=== PATIENT | male | born 1945 | race Caucasian/White ===

== ENCOUNTER 2024-12-04 08:51 | Outpatient (AMB) | payer MEDICARE, SELFPAY ==
--- NOTE | 2024-12-04 08:53 | A.OFFPC_ITS ---
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 He reports he spends about 12 w in [place] per year and last medical evaluation was abotu 2 months there and presents with his labs. Type 2 diabetes-last hemoglobin A1c was 7.5%. He does wear a continuous glucose monitor. Fasting glucose this morning was 160. He does report that occasionally he wakes up in the middle of the night hypoglycemic at 70. He is asymptomatic when these episodes occur. He is insulin-dependent using 20 units of Basaglar in the morning and 14 at night. He also uses NovoLog on sliding scale. He states that he will have snacks at night due to concerns for hypoglycemia. He does follow with [facility]. Type 2 diabetes complicated by diabetic retinopathy, macular degeneration, and glaucoma. He follows with ophthalmologic care in [place] and receives injections every 8 weeks and uses timolol twice daily. CAD[place]HLD- [place] [facility] [place] Continue swallowing there. No recent anginal chest pain. Continues on aspirin, atenolol, atorvastatin Hypertension-controlled with atenolol Elevated PSA-recent labs revealed PSA of 12. No LUTS reported by patient. Has had MRI with upcoming biopsy scheduled early next month. At [facility] 12 w per years staggered. home 2 children and grandchildren. Concerns: None Health maintenance: Last colonoscopy 09/26/2024 at [facility] in [place], report to be requested ROS: General: No fevers, malaise, unintentional weight loss HEENT: No blurred vision, diplopia. No sore throat, nasal congestion, rhinorrhea, sinus pain, ear pain Cardiovascular: No chest pain, palpitations, or leg edema Respiratory: No shortness of breath, wheezing, cough GI: No abdominal pain, nausea, vomiting, diarrhea, constipation, melena, hematochezia : No dysuria, hematuria, increased urinary frequency, decreased urinary output MSK: No myalgia, back pain Neuro: No headaches, weakness, paresthesias Skin: No rashes or lesions EXAM: Constitutional - Awake and Alert, No apparent distress Eyes - PERRL Cardiovascular - S1S2, RRR, No edema Respiratory - Normal lung expansion, Normal respiratory effort, No respiratory distress, CTA bilaterally Extremities - no calf tenderness bilaterally, no swelling Skin - Warm/Dry Neurological - Alert & oriented x3 Psychological - Appropriate affect PFSH Medical History (Updated 12/04/24 @ 09:37 by ANA MARIA Malcolm) Elevated PSA Diabetic retinopathy CAD (coronary artery disease) HTN (hypertension) HLD (hyperlipidemia) Type 2 diabetes mellitus Surgical History (Updated 12/04/24 @ 09:27 by ANA MARIA Malcolm) S/P cataract extraction S/P CABG x 6 Family History (Updated 12/04/24 @ 09:28 by ANA MARIA Malcolm) Mother Stroke CAD (coronary artery disease) Social History Patient Tobacco Use Status: Never used Tobacco e-Cigarette/Vaping Use: Never Used Questionnaire PHQ-9 Over the last 2 weeks, how often have you been bothered by any of the following problems? 1. Little interest or pleasure in doing things: not at all 2. Feeling down, depressed, or hopeless: not at all 3. Trouble falling or staying asleep, or sleeping too much: not at all 4. Feeling tired or having little energy: not at all 5. Poor appetite or overeating: not at all 6. Feeling bad about yourself - or that you are a failure or have let yourself or your family down: not at all 7. Trouble concentrating on things, such as reading the newspaper or watching television: not at all 8. Moving or speaking so slowly that other people could have noticed. Or the opposite - being so fidgety or restless that you have been moving around a lot more than usual: not at all 9. Thoughts that you would be better off or of hurting yourself in some way: not at all Total score: 0 Source: Developed by Drs. Alfredo LZena Kilgore Kurt Kroenke and colleagues, with an educational skye from [employer]. Thrive Questionnaire Date Thrive assessed: 12/04/24 I am a: Patient What is your living situation today?: I have a steady place to live Within the past 12 months, did the food you bought not last and you didn't have the money to get more?: Never true Within the past 12 months, did you worry whether your food would run out before you got money to buy more?: Never true Do you have trouble paying for medicines?: No Do you have trouble getting transportation to medical appointments?: No Do you have trouble paying your heating and electricity bill?: No Do you have trouble taking care of your child, family member or friend?: No Do you have trouble with day-to-day activities such as bathing, preparing meals, shopping, managing finances, etc.?: No Are you currently unemployed and looking for a job?: No Are you interested in more education?: No THRIVE Score: 0 AUDIT C Alcohol Use Questionnaire (AUDIT-C) 1. How often do you have a drink containing alcohol?: 4 or more times a week 2. How many drinks containing alcohol do you have on a typical day when you are drinking?: 1 or 2 Total Score: 4 FRAN-7 AMB Questionnaire FRAN-7 Date FRAN - 7 assessed: 12/04/24 Feeling nervous, anxious, or on edge: 0 = Not at all Not being able to stop or control worryin = Not at all Worrying too much about different things: 0 = Not at all Trouble relaxin = Not at all Being so restless that it is hard to sit still: 0 = Not at all Becoming easily annoyed or irritable: 0 = Not at all Feeling afraid as if something awful might happen: 0 = Not at all Total FRAN-7 score (0-4 normal; 5-9 mild; 10-14 moderate; 15-21 severe): 0 Source: Developed by Drs. Alfredo Casarez, Chato Sepulveda and colleagues, with an educational skye from [employer]. Physical exam (Primary Care) Vital Signs: Last Vital Signs Temp 97.0 F 12/04/24 09:03 Pulse 69 12/04/24 09:03 BP 128/58 L 12/04/24 09:03 Pulse Ox 96 12/04/24 09:03 Oxygen Delivery Method Room Air 12/04/24 09:03 Tobacco/Smoking Status: Tobacco use Status Tobacco use date assessed 12/04/24 12/04/24 09:05 Patient Tobacco Use Status Never used Tobacco 12/04/24 09:05 e-Cigarette/Vaping Use Never Used 12/04/24 09:05 PHQ-9: PHQ-9 Score PHQ-9: Total score 0 12/04/24 12:37 Thrive Assessment: Date of Thrive Assessment Date Thrive assessed 12/04/24 12/04/24 09:41 Coding Level of Care Code New Pt Level 4 (31962) Complex EM visit Add On G2211 Diagnoses CAD (coronary artery disease) I25.10 HTN (hypertension) I10 HLD (hyperlipidemia) E78.5 Type 2 diabetes mellitus E11.9 Elevated PSA R97.20 Assessment & Plan Assessment & Plan (1) CAD (coronary artery disease): Code(s): I25.10 - Atherosclerotic heart disease of [place] coronary artery without angina pectoris Category: Medical Plan: Stable. Reviewed records [place] [facility]. Continue following with cardiology as scheduled. Continue aspirin, atenolol, atorvastatin. Use nitro only if needed and present to the ER for ongoing symptoms. (2) HTN (hypertension): Code(s): I10 - Essential (primary) hypertension Category: Medical Plan: Controlled. Continue atenolol (3) HLD (hyperlipidemia): Code(s): E78.5 - Hyperlipidemia, unspecified Category: Medical Plan: Controlled. Continue atorvastatin. Diet low in saturated fats and highly processed foods. (4) Type 2 diabetes mellitus: Code(s): E11.9 - Type 2 diabetes mellitus without complications Category: Medical Plan: Controlled for age. Continue following with [facility] for further management of type 2 diabetes. Consider reducing nightly dose of Basaglar to help reduce risk of hypoglycemia, can discuss further with endocrinology. Continue NovoLog on sliding scale t.i.d. with meals. Follow diabetic diet. Continue following with Ophthalmology for management of diabetic complications including macular degeneration, retinopathy, glaucoma and continue eyedrops and retinal injections as scheduled (5) Elevated PSA: Code(s): R97.20 - Elevated prostate specific antigen [PSA] Category: Medical Plan: MRI of the prostate reviewed concerning for several tumors, biopsy scheduled and will continue following with [facility]. PSA 12 Plan Follow-up in the office in 3 months. Labs to be completed prior to next visit. Orders: Orders Basic Metabolic Panel 3 Months E11.9 - Type 2 diabetes mellitus without co mplications, E78.5 - Hyperlipidemia, unspecified, I10 - Essential (primary) hypertension, I25.10 - Atherosclerotic heart disease of [place] coronary artery without angina pectoris Complete Blood Count Auto Diff 3 Months E11.9 - Type 2 diabetes mellitus without complications, E78.5 - Hyperlipidemia, unspecified, I10 - Essential (primary) hypertension, I25.10 - Atherosclerotic heart disease of [place] coronary artery without angina pectoris Liver Panel 3 Months E11.9 - Type 2 diabetes mellitus without complications, E78.5 - Hyperlipidemia, unspecified, I10 - Essential (primary) hypertension, I25.10 - Atherosclerotic heart disease of [place] coronary artery without angina pectoris Lipid Panel 3 Months E11.9 - Type 2 diabetes mellitus without complications, E78.5 - Hyperlipidemia, unspecified, I10 - Essential (primary) hypertension, I25.10 - Atherosclerotic heart disease of [place] coronary artery without angina pectoris Hemoglobin A1c 3 Months E11.9 - Type 2 diabetes mellitus without complications, E78.5 - Hyperlipidemia, unspecified, I10 - Essential (primary) hypertension, I25.10 - Atherosclerotic heart disease of [place] coronary artery without angina pectoris Microalbumin, Random (w Creat) 3 Months E11.9 - Type 2 diabetes mellitus without complications, E78.5 - Hyperlipidemia, unspecified, I10 - Essential (primary) hypertension, I25.10 - Atherosclerotic heart disease of [place] coronary artery without angina pectoris
[2024-12-04 09:03] VITALS: BP 128/58; PULSE 69; TEMP 36.1; O2SAT 96
--- OUTSIDE RECORDS SUMMARY | 2024-12-04 09:03 | XMS_ITS | Data Portability ---
Author Organization [facility], [employer], [facility] [employer] [facility] Address [address] [place] [address] Care Team Providers Care Certified Dietary Manager Name Role Phone KRYSTLE MURRAY Primary Care Provider KRYSTLE MURRAY Referring Provider Assessment No assessment recorded. Plan of Treatment Reminders Order Date Submit Date Provider Last Modified By Organization Details Last Modified Time Details Appointments LAB 2024 09:30A M [facility] Not available Not available Not available ESTABLIS HED OV 30 2024 10:00A M KRYSTLE MURRAY, RISK COMPLIANCE MANAGER Not available Not available Not available Lab HbA1c (hemoglo bin A1c), blood 2024 025 [facility], [address], [place], [address], 09/25/2024 14:31:14 lipid panel, serum 2024 025 [facility], [address], [place], [address], 09/25/2024 15:05:57 PSA, serum or plasma 2024 025 [facility], [address], [place], [address], 09/25/2024 15:03:01 noninvas tamera colorect al cancer DNA + occult blood screenin g, QL, stool - Z12.12, Z12.11 2024 025 [place] [facility] (Cologuard Orders Only), [address], [address], [place], [address], 07/26/2024 05:18:54 fecal occult blood, immunoas say, stool 2024 025 [facility], [address], [place], [address], 06/14/2024 10:35:43 CMP, serum or plasma 2024 025 [facility], [address], [place], [address], 09/25/2024 15:05:53 urinalys is, dipstick , reflex micro 2024 025 [facility], [address], [place], [address], 09/25/2024 15:10:09 fecal occult blood, immunoas say, stool 2024 025 [facility], [address], [place], [address], 09/25/2024 15:10:09 CBC 2024 025 [facility], [address], [place], [address], 09/25/2024 14:56:04 venipunc ture 2024 025 [facility], [address], [place], [address], 09/25/2024 10:03:04 Referral urologis t referral 2024 025 parker Davalos MD, [address] [place] [address] Dr, [address], [place], [address], 11/20/2024 07:13:[address] referral 2024 025 [email or web address] Zak Anderson MD, [address], [address], [place], [address], 10/09/2024 20:04:00 Procedures upper endoscop y procedur e (EGD) (PROC) 2024 025 [facility] Not available 09/26/2024 10:41:59 colonosc opy procedur e (PROC) 2024 025 Not available 09/05/2024 11:48:34 Surgeries None recorded . Imaging None recorded . Medication Orders Jardianc e 25 mg tablet 2024 025 Not available 06/14/2024 10:35:38 Patient TargetsNo targets recorded. Patient Instructions Encounter Date Encounter Id Patient Instructions Last Modified By Organization Details Last Modified Time 06/14/2024 [id number] SCREENING SCHEDULE DEPRESSION SCREENING: A Depression Screening Assessment was conducted, with staff-assisted depression care supports during this encounter and all actions of this assessment and time elements of up to 15 minutes were met. COLORECTAL CANCER SCREENING: Patient refuses Colonoscopy, alternate screening recommended VACCINE RECOMMENDATIONS: (except if you have experienced severe allergic reaction [e.g. anaphylaxis] after a previous dose/a component of these vaccines OR otherwise advised by your provider not to receive it) Covid vaccine: vaccine recommended per guidelines Influenza vaccine: vaccination up to date for current flu season Pneumococcal Vaccine: up to date Shingles vaccine - Shingrix: vaccine recommended per guidelines Tetanus vaccine: recommended every 10 years [email or web address] Not available 06/14/2024 11:33:20 We discussed you r diabetes: - Your A1c is 7.3, slightly up from 7.1 last time. - Increase Jardiance from 10 mg to 25 mg once daily to help lower your blood sugar levels; I have printed the prescription for you. - Continue monitoring your blood sugar levels regularly. - Your glucose level was 151, which is a bit high. - Your urine showed some glucose, which is expected due to Jardiance. - Your kidney function is normal, but we'll keep an eye on it. - Your lipid panel looks good, but your HDL is slightly low at 47; aim for more than 50. - Your alkaline phosphatase is slightly elevated at 144; we'll monitor this. - Your potassium level is 5, which is within the acceptable range. - Continue taking Prilosec as prescribed for the full 14-day course to manage your cough. We discussed your high PSA level: - Your PSA level is 10.6, which is higher than the normal range of 6 for your age. - We will recheck your PSA level in the first week of September to monitor any changes. We discussed your fall risk: - You are at high risk for falls due to a previous fall. - Continue doing balance exercises to help prevent falls. We discussed your hearing: - Your hearing aids are working well, but you have difficulty hearing the TV with background noise. - Consider using wireless headphones that connect to the TV to improve your hearing experience. We discussed your foot care: - You have a small cut on your foot from your sneaker. - Keep an eye on it and make sure it heals properly. - If it looks red, painful, or doesn't heal, come in and have us look at it. We discussed your vaccinations: - You are up to date on your pneumonia and flu vaccines. - You may need the shingles vaccine; I recommend getting the 2-dose series of Shingrix. - You can ask your pharmacy to provide the shingles vaccine. We discussed your colon cancer screening: - You haven't had a colonoscopy in 10-15 years. - I will order a Cologuard test to be sent to your address in [place]. - Follow the instructions in the kit and send it back for analysis. We discussed your upcoming lab tests: - I have ordered lab tests for the first week of September, including A1c, metabolic panel, lipid panel, CBC, and urinalysis. - Schedule an appointment with me a week after your lab tests to discuss the results. [email or web address] Not available 06/14/2024 11:27:25 08/21/2024 [id number] We discussed you r positive Cologuard test: - The positive result indicates the presence of DNA or blood that could suggest possible colon cancer. However, false positives can occur. - To confirm or rule out colon cancer, I recommend proceeding with a colonoscopy. You agreed to this plan. - I will refer you to a washroom attendant in [place] for the colonoscopy. Typically, this involves an initial consultation followed by the procedure. - If scheduling in [place] becomes difficult, let me know, and I can explore other options, such as Farhat Woody. We discussed your diabetes management: - Continue taking Jardiance at the increased dose of 25 mg daily, as this will help lower your A1c. Your last A1c was 7.3, and our goal is to bring it closer to 6.5. - You are currently finishing your 10 mg supply by taking two tablets daily. Once completed, your prescription for 25 mg has been sent to your [facility] pharmacy. You can transfer it to [place] if needed. - We will follow up on your diabetes management during your next visit in September. We discussed your Dexcom reader: - Your Dexcom reader is no longer under warranty. I will provide a prescription for a new Dexcom reader, which you can use to obtain a replacement. - If your insurance does not cover the cost, you may need to pay for the reader out of pocket. Follow-Up: - Your next appointment is scheduled for October 02 in [place]. We will review your diabetes management and any updates regarding your colonoscopy at that time. - If you have any questions or need assistance with prescriptions, please contact our office or send a message through the patient portal. [email or web address] Not available 08/21/2024 11:15:53 08/22/2024 [id number] Instructed deven lantigua to call our office with any questions, comments, or concerns. Not available 08/22/2024 11:03:07 10/02/2024 [id number] We discussed you r recent colonoscopy and findings: - The colonoscopy was performed due to an abnormal Cologuard test. During the procedure, one large polyp was removed, which appeared benign. You have a follow-up appointment with Dr. Zepeda tomorrow to review these findings. - A small hiatal hernia and a stomach ulcer were also identified. Please monitor for any symptoms such as abdominal pain, nausea, or worsening heartburn, and let us know if they occur. We discussed your elevated PSA levels: - Your PSA level has increased from 10 in May to 12 currently. I recommend that you see a urologist for further evaluation of your prostate. - I have placed a referral to Dr. Smith at [place]. His office should contact you, but I recommend calling them within 24 hours to confirm the appointment. If you experience difficulty scheduling, please let us know. We discussed your diabetes management: - Your A1c has increased slightly from 7.3 to 7.5. You are currently taking Jardiance, Basaglar (approximately 40 units daily), and Novolog (approximately 6 units with meals). Continue these medications as prescribed. - I recommend starting Tresiba, as it is a more concentrated insulin that may help improve your blood sugar control. You mentioned that you have a prescription from the [facility] but have not started it yet. Please begin using it when you return home. - If your blood sugar levels are not coming down to the normal range, you can adjust your sliding scale by increasing the dose by 2 units. - Your fasting blood sugars are generally under 130, which is good. However, you reported occasional nighttime lows, with the lowest being 62. This is too low. Your new Qriket reader should help alert you to these episodes. If you continue to experience lows, please let us know. - I recommend downloading the Clarity carmel on your phone and connecting it to your Qriket reader. This will allow me to monitor your blood sugar trends remotely. Jennifer will assist you with setting this up. We discussed your lab results: - Your lipid panel is excellent: total cholesterol is 117, triglycerides are 71, HDL (good cholesterol) is 51, and LDL (bad cholesterol) is 52. - Your glucose was slightly elevated at 137, which is expected due to your diabetes. - Your liver function tests were mostly normal, except for a slightly elevated alkaline phosphatase level (140). I have ordered an additional liver lab to further evaluate this. - Your CBC (complete blood count) was normal, with no signs of anemia or infection. We discussed preparation for future procedures: - If you need to fast for any future procedures, such as a colonoscopy, stop taking Jardiance 3 days beforehand to prevent low blood sugar levels. Follow-up and next steps: - I have ordered labs for your next visit in March. Please complete these labs before your appointment so we can review the results together. - If you have any tests or procedures done while you are in [place], please ensure the results are sent to our office. I will provide you with a card to give to the providers there. - Your next follow-up appointment with me is scheduled for March. This will be a 30-minute visit to review your labs and overall health. Please let us know if you have any questions or concerns before your next visit. [email or web address] Not available 10/02/2024 17:56:23 10/03/2024 [id number] Instructed patie nt to call our office with any questions, comments, or concerns. Not available 10/03/2024 09:39:27 Reason for Referral Director Of Payroll Referral for Colorectal cancer detected by DNA-based stool screening Referring Physician: Krystle Murray, Internal Medicine, Encounter Date: 08/21/2024 Urologist Referral for Prost ate specific antigen above reference range Referring Physician: Krystle Murray, Internal Medicine, Encounter Date: 10/02/2024 Results Created Date Observation Date Name Description Value Unit Range Abnormal Flag Note LastModifiedBy Organization Detail LastModifiedTime 05/31/1905/31/2024 URINA LYSIS , W/ REFLE X TO MICRO SCOPI C (NO CULTU RE) color YELLOW yellow Not Available [facility] [address] [place], [address], 05/31/2024 14:20:34 05/31/19 25 05/31/2024 URINA LYSIS , W/ REFLE X TO MICRO SCOPI C (NO CULTU RE) appearance CLEAR clear Not Available [facility] [address] [place], [address], 05/31/2024 14:20:34 05/31/19 25 05/31/2024 URINA LYSIS , W/ REFLE X TO MICRO SCOPI C (NO CULTU RE) glucose, urine 4+ mg/dL negati ve abnormal Not Available [facility] [address] [place], [address], 05/31/2024 14:20:34 05/31/19 25 05/31/2024 URINA LYSIS , W/ REFLE X TO MICRO SCOPI C (NO CULTU RE) specific gravity 1.022 1.005- 1.030 Not Available [facility], [place], [address], 05/31/2024 14:20:34 05/31/19 25 05/31/2024 URINA LYSIS , W/ REFLE X TO MICRO SCOPI C (NO CULTU RE) pH 5.0 5.0-8. 0 Not Available [facility] [address], [place], [address], 05/31/2024 14:20:34 05/31/19 25 05/31/2024 URINA LYSIS , W/ REFLE X TO MICRO SCOPI C (NO CULTU RE) bilirubin NEGATI VE mg/dL negati ve Not Available [facility] [address] [place] [address] [address], [place], [address], 05/31/2024 14:20:34 05/31/19 25 05/31/2024 URINA LYSIS , W/ REFLE X TO MICRO SCOPI C (NO CULTU RE) ketone NEGATI VE mg/dL negati ve Not Available [facility] [address] [place] [address] [address], [place], [address], 05/31/2024 14:20:34 05/31/19 25 05/31/2024 URINA LYSIS , W/ REFLE X TO MICRO SCOPI C (NO CULTU RE) urobilinogen NORMAL E.U./ dL normal Not Available [facility] [address] [facility] [address], [place], [address], 05/31/2024 14:20:34 05/31/19 25 05/31/2024 URINA LYSIS , W/ REFLE X TO MICRO SCOPI C (NO CULTU RE) protein NEGATI VE mg/dL negati ve Not Available [facility] [address] [place] [address] [address], [place], [address], 05/31/2024 14:20:34 05/31/19 25 05/31/2024 URINA LYSIS , W/ REFLE X TO MICRO SCOPI C (NO CULTU RE) nitrite NEGATI VE negati ve Not Available [facility] [address] [place] [address] [address] [place], [address], 05/31/2024 14:20:34 05/31/19 25 05/31/2024 URINA LYSIS , W/ REFLE X TO MICRO SCOPI C (NO CULTU RE) blood, urine NEGATI VE mg/dL negati ve Not Available [facility] [address] [place] [address] [address], [place], [address], 05/31/2024 14:20:34 05/31/19 25 05/31/2024 URINA LYSIS , W/ REFLE X TO MICRO SCOPI C (NO CULTU RE) leukocytes NEGATI VE bishop/u L negati ve A micro scopi c will refle x for: > or = trace blood , > or = 25 leuko cytes , + Nitri femi or > or = 1+ prote in. Not Available [facility] [address] [place] [address] [address] [facility], [place], [address], 05/31/2024 14:20:34 05/31/19 25 05/31/2024 A1C hemoglobin A1C 7.3 % 4.3 - 5.6 high ADA Recom mercy d guide lines for HgbA1 C%: 5.7-6 .4% Predi abeti c < 7.0% Reaso nable glyce zhou goal for non-p regna nt adult s < 8.0% Appro priat e for patie nts with hypog lycem ia or advan bessy micro /macr o vascu lar compl icati ons Not Available [facility] [address] [facility] [address], [place], [address], 05/31/2024 14:27:04 05/31/1905/31/2024 A1C estimated average glucose 163 mg/dL 97 - 140 high Not Available [facility] [address], [place], [address], 05/31/2024 14:27:04 05/31/19 25 05/31/2024 CBC W/ AUTOD IFF, COMPL ETE BLOOD COUNT WBC 7.1 K/uL 3.6 - 10.0 Not Available [facility] [address], [place], [address], 05/31/2024 14:47:11 05/31/1905/31/2024 CBC W/ AUTOD IFF, COMPL ETE BLOOD COUNT RBC 5.3 M/uL 4.1 - 5.8 Not Available [facility] [address], [place], [address], 05/31/2024 14:47:11 05/31/1905/31/2024 CBC W/ AUTOD IFF, COMPL ETE BLOOD COUNT hemoglobin 17.0 g/dL 13.2 - 17.0 Not Available [facility] [address], [place], [address], 05/31/2024 14:47:11 05/31/19 25 05/31/2024 CBC W/ AUTOD IFF, COMPL ETE BLOOD COUNT hematocrit 49.0 % 37.0 - 51.0 Not Available [facility] [address], [place], [address], 05/31/2024 14:47:11 05/31/1905/31/2024 CBC W/ AUTOD IFF, COMPL ETE BLOOD COUNT MCV 92.3 fL 80.0 - 99.0 Not Available [facility] [address], [place], [address], 05/31/2024 14:47:11 05/31/19 25 05/31/2024 CBC W/ AUTOD IFF, COMPL ETE BLOOD COUNT MCH 32.0 pg 27.0 - 33.0 Not Available [facility] [address], [place], [address], 05/31/2024 14:47:11 05/31/19 25 05/31/2024 CBC W/ AUTOD IFF, COMPL ETE BLOOD COUNT MCHC 34.7 g/dL 32.0 - 37.5 Not Available [facility] [address], [place], [address], 05/31/2024 14:47:11 05/31/19 25 05/31/2024 CBC W/ AUTOD IFF, COMPL ETE BLOOD COUNT RDW 13.9 % 11.0 - 15.0 Not Available [facility], [place], [address], 05/31/2024 14:47:11 05/31/1905/31/2024 CBC W/ AUTOD IFF, COMPL ETE BLOOD COUNT nucleated RBC 0 % 0 - 2 Not Available [facility], [place], [address], 05/31/2024 14:47:11 05/31/1905/31/2024 CBC W/ AUTOD IFF, COMPL ETE BLOOD COUNT platelet 142 K/uL 140 - 440 Not Available [facility] [address], [place], [address], 05/31/2024 14:47:11 05/31/19 25 05/31/2024 CBC W/ AUTOD IFF, COMPL ETE BLOOD COUNT MPV 9.5 fL 7.4 - 10.4 Not Available [facility], [place], [address], 05/31/2024 14:47:11 05/31/1905/31/2024 CBC W/ AUTOD IFF, COMPL ETE BLOOD COUNT neutrophil, percentage 54.7 % Not Available [facility] [address], [place], [address], 05/31/2024 14:47:11 05/31/1905/31/2024 CBC W/ AUTOD IFF, COMPL ETE BLOOD COUNT lymphocyte, percentage 25.8 % Not Available [facility] [address], [place], [address], 05/31/2024 14:47:11 05/31/1905/31/2024 CBC W/ AUTOD IFF, COMPL ETE BLOOD COUNT monocyte, percentage 11.3 % Not Available [facility] [address] [place], [place] [address]y [address], [place], [address], 05/31/2024 14:47:11 05/31/1905/31/2024 CBC W/ AUTOD IFF, COMPL ETE BLOOD COUNT eosinophil, percentage 7.4 % Not Available [facility] [address] [place], [place] [address]y [address], [place], [address], 05/31/2024 14:47:11 05/31/1905/31/2024 CBC W/ AUTOD IFF, COMPL ETE BLOOD COUNT basophil, percentage 0.8 % Not Available [facility] [address] [place], [place] [address], [place], [address], 05/31/2024 14:47:11 05/31/1905/31/2024 CBC W/ AUTOD IFF, COMPL ETE BLOOD COUNT neutrophil, absolute 3.9 K/uL 1.5 - 7.5 Not Available [facility] [address], [place], [address], 05/31/2024 14:47:11 05/31/1905/31/2024 CBC W/ AUTOD IFF, COMPL ETE BLOOD COUNT lymphocyte, absolute 1.8 K/uL 0.8 - 4.0 Not Available [facility] [address], [place], [address], 05/31/2024 14:47:11 05/31/1905/31/2024 CBC W/ AUTOD IFF, COMPL ETE BLOOD COUNT monocyte, absolute 0.8 K/uL 0.1 - 1.0 Not Available [facility] [address], [place], [address], 05/31/2024 14:47:11 05/31/1905/31/2024 CBC W/ AUTOD IFF, COMPL ETE BLOOD COUNT eosinophil, absolute 0.5 K/uL 0.1 - 1.0 Not Available [facility] [address], [place], [address], 05/31/2024 14:47:11 05/31/1905/31/2024 CBC W/ AUTOD IFF, COMPL ETE BLOOD COUNT basophil, absolute 0.1 K/uL 0.0 - 0.2 Not Available [facility] [address] [place], [address], 05/31/2024 14:47:11 05/31/1905/31/2024 PSA SCREE N PSA, total 10.60 NG/mL 0.00 - 6.50 high Updat ed range s in accor dance with ACS stand ards: AGE: Refer ence Range : < 50 yr 0.00- 2.50 ng/mL 50-59 yr 0.00- 3.50 ng/mL 60-69 yr 0.00- 4.50 ng/mL > 70 yr 0.00- 6.50 ng/mL Age speci fic anne l value s from the liter ature for PSA are provi ded as a guide only. No one decis ion level is appro priat e when utili zing PSA in scree louise situa tion, age, famil y histo ry, previ ous value s, and other facto rs shoul d be used in decis ions invol ving PSA value s. Not Available [facility] [address], [place], [address], 05/31/2024 15:04:45 05/31/19 25 05/31/2024 TSH W/REF DAVE TO FT4 TSH w/reflex FT4 3.3000 uIU/m L 0.2700 - 4.2000 Not Available [facility] [address] [facility] [address], [place], [address], 05/31/2024 15:04:49 05/31/19 25 05/31/2024 CMP, COMPR EHENS TAMERA METAB OLIC PANEL glucose 151 mg/dL 70 - 100 high Not Available [facility] [address], [place], [address], 05/31/2024 15:06:54 05/31/19 25 05/31/2024 CMP, COMPR EHENS TAMERA METAB OLIC PANEL BUN 18 mg/dL 7 - 25 Not Available [facility] [address] [facility] [address] [place], [address], 05/31/2024 15:06:54 05/31/19 25 05/31/2024 CMP, COMPR EHENS TAMERA METAB OLIC PANEL creatinine 1.0 mg/dL 0.6 - 1.3 Not Available [facility] [address] [facility] [address], [place], [address], 05/31/2024 15:06:54 05/31/19 25 05/31/2024 CMP, COMPR EHENS TAMERA METAB OLIC PANEL BUN/creatini ne ratio 18 calc 10 - 25 Not Available [facility] [address], [place], [address], 05/31/2024 15:06:54 05/31/19 25 05/31/2024 CMP, COMPR EHENS TAMERA METAB OLIC PANEL GFR 76 mL/mi n/1.7 3m^2 >60 GFR < 60 mL/mi n for 3 or more month s may be indic ative of Kiddb Parsons se. The GFR is based on the CKD-E PI 2020 equat ion. To calcu late the new GFR from a previ ous Creat inine resul t go to: https ://ww w.kid brennen.o rg/pr ofess ional s/kdo qi/gf r&5Fc alcul ator. Not Available [facility] [address], [place], [address], 05/31/2024 15:06:54 05/31/19 25 05/31/2024 CMP, COMPR EHENS TAMERA METAB OLIC PANEL sodium 142 mmol/ L 135 - 145 Not Available [facility] [address], [place], [address], 05/31/2024 15:06:54 05/31/19 25 05/31/2024 CMP, COMPR EHENS TAMERA METAB OLIC PANEL potassium 5.0 mmol/ L 3.5 - 5.5 Not Available [facility] [address] [place], [address], 05/31/2024 15:06:54 05/31/19 25 05/31/2024 CMP, COMPR EHENS TAMERA METAB OLIC PANEL chloride 104 mmol/ L 100 - 115 Not Available [facility] [address], [place], [address], 05/31/2024 15:06:54 05/31/19 25 05/31/2024 CMP, COMPR EHENS TAMERA METAB OLIC PANEL CO2 30 mmol/ L 21 - 33 Not Available [facility] [address], [place], [address], 05/31/2024 15:06:54 05/31/19 25 05/31/2024 CMP, COMPR EHENS TAMERA METAB OLIC PANEL calcium 9.1 mg/dL 8.8 - 10.6 Not Available [facility] [address], [place], [address], 05/31/2024 15:06:54 05/31/19 25 05/31/2024 CMP, COMPR EHENS TAMERA METAB OLIC PANEL total protein 6.5 g/dL 6.2 - 8.6 Not Available [facility] [address], [place], [address], 05/31/2024 15:06:54 05/31/19 25 05/31/2024 CMP, COMPR EHENS TAMERA METAB OLIC PANEL globulin 2.8 g/dL 1.3 - 4.0 Not Available [facility] [address], [place], [address], 05/31/2024 15:06:54 05/31/19 25 05/31/2024 CMP, COMPR EHENS TAMERA METAB OLIC PANEL albumin 3.7 g/dL 3.5 - 5.7 Not Available [facility], [place], [address], 05/31/2024 15:06:54 05/31/19 25 05/31/2024 CMP, COMPR EHENS TAMERA METAB OLIC PANEL A/G ratio 1.3 calc 1.0 - 2.8 Not Available [facility] [address], [place], [address], 05/31/2024 15:06:54 05/31/19 25 05/31/2024 CMP, COMPR EHENS TAMERA METAB OLIC PANEL AST (SGOT) 21 U/L 13 - 39 Not Available [facility] [address], [place], [address], 05/31/2024 15:06:54 05/31/19 25 05/31/2024 CMP, COMPR EHENS TAMERA METAB OLIC PANEL ALT (SGPT) 17 U/L 7 - 52 Not Available [facility] [address], [place], [address], 05/31/2024 15:06:54 05/31/19 25 05/31/2024 CMP, COMPR EHENS TAMERA METAB OLIC PANEL alkaline phosphatase 144 U/L 20 - 128 high Not Available [facility] [address], [place], [address], 05/31/2024 15:06:54 05/31/19 25 05/31/2024 CMP, COMPR EHENS TAMERA METAB OLIC PANEL total bilirubin 0.7 mg/dL 0.3 - 1.0 Not Available [facility] [address], [place], [address], 05/31/2024 15:06:54 05/31/19 25 05/31/2024 LIPID PANEL W/ CALCU LATED LDL HDL cholestrol 47 mg/dL >50 low Not Available [facility] [address], [place], [address], 05/31/2024 15:07:00 05/31/1905/31/2024 LIPID PANEL W/ CALCU LATED LDL cholesterol 109 mg/dL <200 Expec jose ramon resul ts for Adult s: Total Kendal stero l: Risk class ifica tion < 200 mg/dL Golden able 200-2 39 mg/dL Borde rline high >240 mg/dL High Not Available [facility] [address], [place], [address], 05/31/2024 15:07:00 05/31/19 25 05/31/2024 LIPID PANEL W/ CALCU LATED LDL triglyceride 77 mg/dL 30 - 150 Not Available [facility] [address], [place], [address], 05/31/2024 15:07:00 05/31/19 25 05/31/2024 LIPID PANEL W/ CALCU LATED LDL non-HDL cholesterol 62 mg/dL <130 Golden able < 130 mg/dL Not Available [facility] [address], [place], [address], 05/31/2024 15:07:00 05/31/19 25 05/31/2024 LIPID PANEL W/ CALCU LATED LDL chol/HDL risk ratio 2 calc < 5.0 Optim al Not Available [facility] [address] [facility] [address], [place], [address], 05/31/2024 15:07:00 05/31/19 25 05/31/2024 LIPID PANEL W/ CALCU LATED LDL LDL calculated 47 mg/dL 0 - 99 Not Available [facility] [address] [facility] [address], [place], [address], 05/31/2024 15:07:00 05/31/19 25 05/31/2024 MICRO ALBUM IN, RAND (UR/C REAT) urine albumin 23 mg/L <30 Not Available [facility] [address], [place], [address], 05/31/2024 15:55:59 05/31/19 25 05/31/2024 MICRO ALBUM IN, RAND (UR/C REAT) creatinine, urine 95 mg/dL 20 - 320 Not Available [facility] [address], [place], [address], 05/31/2024 15:55:59 05/31/19 25 05/31/2024 MICRO ALBUM IN, RAND (UR/C REAT) AC ratio 24.2 mg/g <30.0 Refer ence Inter vals: The Ameri can Diabe femi Assoc iatio n defin ition of moder ately incre ased urine album in urine spot colle ction (mcg/ mg creat inine ) is as follo ws: < 30 Anne l 30 - 229 Moder ately incre ased >= 300 Clini jez album inuri a For diagn ostic purpo ses resul ts shoul d alway s be asses sed in conju nctio n with the patie nt's medic al histo ry, clini jez exami natio n and other findi ngs. Not Available [facility] [address], [place], [address], 05/31/2024 15:55:59 05/31/19 25 05/31/2024 VENIP UNCTU RE results Compl ete Not Available [facility] [address], [place], [address], 05/31/2024 09:53:17 07/23/19 25 07/22/2024 COLOG UARD cologuard result reportable POSITI VE negati ve abnormal POSIT TAMERA TEST RESUL T. A posit tamera Colog uard resul t shoul d be follo wed with a colon oscop y or visua l exami natio n of the colon . The anne l value (refe rence range ) for this assay is negat tamera. TEST DESCR IPTIO N: [place] site algor ithmi c agustin sis of stool DNA-b iobrittni fernandez with hemog lobin immun oassa y. Quant itati ve value s of indiv idual bioma rkers are not repor table and are not assoc iated with indiv idual bioma rker resul t refer ence range s. Colog uard is inten ded for color ectal cance r scree louise of adult s of eithe r sex, 45 years or older , who are at [facility] for color ectal cance r (CRC) . Colog uard has been appro pooja for use by the U.[place]. FDA. The perfo rmanc e of Colog uard was estab lishe d in a cross secti onal study of [facility] adult s aged 50-84 . Colog uard perfo rmanc e in patie nts ages 45 to 49 years was estim ated by sub-g roup agustin sis of near- age group s. Colon oscop ies perfo rmed for a posit tamera resul t may find as the most clini epifanio signi fican t lesio n: color ectal cance r [4.0% ], advan bessy adeno ma (incl uding sessi le silvino jose ramon polyp s great er than or equal to 1cm diame ter) [20%] or non- advan bessy adeno ma [31%] ; or no color ectal neopl erika [45%] . These estim ates are deriv ed from a prosp ectiv e cross -sect ional scree louise study of 0 indiv idual s at [facility] risk for color ectal cance r who were scree antionette with both Colog uard and colon oscop y. (Jagdish Hill et al, N Engl J Med 2014; 370(1 4):12 86-12 97.) Colog uard may produ ce a false negat tamera or false posit tamera resul t (no color ectal cance r or preca ncero us polyp prese nt at colon oscop y follo w up). A negat tamera Colog uard test resul t does not guara ntee the absen ce of CRC or advan bessy adeno ma (pre- cance r). The curre nt Colog uard scree louise inter mauro is every 3 years . (Amer ican Cance r Socie ty and U.S. Multi -Soci ety Task Force ). Colog uard perfo rmanc e data in a 0 patie nt pivot al study using colon oscop y as the refer ence metho d can be acces sed at the follo wing locat ion: www.e xactl abs.c om/re sulmaxine . Addit ional descr iptio n of the Colog uard test proce ss, warni ngs and preca ution s can be found at www.c leida clark.c om. Not Available [facility] (Cologuard Orders Only) [address], [place], [address], 07/26/2024 05:18:54 09/26/19 25 09/25/2024 A1C hemoglobin A1C 7.5 % 4.3 - 5.6 high ADA Recom mercy d guide lines for HgbA1 C%: 5.7-6 .4% Predi abeti c < 7.0% Reaso nable glyce zhou goal for non-p regna nt adult s < 8.0% Appro priat e for patie nts with hypog lycem ia or advan bessy micro /macr o vascu lar compl icati ons Not Available [facility] [address], [place], [address], 09/25/2024 14:31:14 09/26/19 25 09/25/2024 A1C estimated average glucose 169 mg/dL 97 - 140 high Not Available [facility] [address] [place], [address], 09/25/2024 14:31:14 09/26/19 25 09/25/2024 CBC W/ AUTOD IFF, COMPL ETE BLOOD COUNT WBC 6.6 K/uL 3.6 - 10.0 Not Available [facility] [address], [place], [address], 09/25/2024 14:56:04 09/26/19 25 09/25/2024 CBC W/ AUTOD IFF, COMPL ETE BLOOD COUNT RBC 5.2 M/uL 4.1 - 5.8 Not Available [facility] [address], [place], [address], 09/25/2024 14:56:04 09/26/19 25 09/25/2024 CBC W/ AUTOD IFF, COMPL ETE BLOOD COUNT hemoglobin 16.7 g/dL 13.2 - 17.0 Not Available [facility], [place], [address], 09/25/2024 14:56:04 09/26/19 25 09/25/2024 CBC W/ AUTOD IFF, COMPL ETE BLOOD COUNT hematocrit 48.0 % 37.0 - 51.0 Not Available [facility] [address] [place] [address] [address], [place], [address], 09/25/2024 14:56:04 09/26/19 25 09/25/2024 CBC W/ AUTOD IFF, COMPL ETE BLOOD COUNT MCV 91.6 fL 80.0 - 99.0 Not Available [facility] [address] [place] [address] [address], [place], [address], 09/25/2024 14:56:04 09/26/19 25 09/25/2024 CBC W/ AUTOD IFF, COMPL ETE BLOOD COUNT MCH 31.8 pg 27.0 - 33.0 Not Available [facility] [address] [place] [address] [address], [place], [address], 09/25/2024 14:56:04 09/26/19 25 09/25/2024 CBC W/ AUTOD IFF, COMPL ETE BLOOD COUNT MCHC 34.7 g/dL 32.0 - 37.5 Not Available [facility] [address] [place] [address] [address], [place], [address], 09/25/2024 14:56:04 09/26/19 25 09/25/2024 CBC W/ AUTOD IFF, COMPL ETE BLOOD COUNT RDW 13.9 % 11.0 - 15.0 Not Available [facility] [address] [place] [address] [address], [place], [address], 09/25/2024 14:56:04 09/26/19 09/25/2024 CBC W/ AUTOD IFF, COMPL ETE BLOOD COUNT nucleated RBC 0 % 0 - 2 Not Available [facility] [address] [place], [place] [address], [place], [address], 09/25/2024 14:56:04 09/26/19 25 09/25/2024 CBC W/ AUTOD IFF, COMPL ETE BLOOD COUNT platelet 141 K/uL 140 - 440 Not Available [facility] [address] [place], [place] [address], [place], [address], 09/25/2024 14:56:04 09/26/19 25 09/25/2024 CBC W/ AUTOD IFF, COMPL ETE BLOOD COUNT MPV 9.2 fL 7.4 - 10.4 Not Available [facility] [address] [place], [place] [address], [place], [address], 09/25/2024 14:56:04 09/26/19 25 09/25/2024 CBC W/ AUTOD IFF, COMPL ETE BLOOD COUNT neutrophil, percentage 50.3 % Not Available [facility] [address] [place], [place] [address], [place], [address], 09/25/2024 14:56:04 09/26/19 25 09/25/2024 CBC W/ AUTOD IFF, COMPL ETE BLOOD COUNT lymphocyte, percentage 27.5 % Not Available [facility] [address] [place], [place] [address], [place], [address], 09/25/2024 14:56:04 09/26/19 25 09/25/2024 CBC W/ AUTOD IFF, COMPL ETE BLOOD COUNT monocyte, percentage 10.5 % Not Available [facility] [address] [place], [place] [address], [place], [address], 09/25/2024 14:56:04 09/26/19 25 09/25/2024 CBC W/ AUTOD IFF, COMPL ETE BLOOD COUNT eosinophil, percentage 10.5 % Not Available [facility] [address] [place], [place] [address], [place], [address], 09/25/2024 14:56:04 09/26/19 25 09/25/2024 CBC W/ AUTOD IFF, COMPL ETE BLOOD COUNT basophil, percentage 1.2 % Not Available [facility] [address] [place], [place] [address], [place], [address], 09/25/2024 14:56:04 09/26/19 25 09/25/2024 CBC W/ AUTOD IFF, COMPL ETE BLOOD COUNT neutrophil, absolute 3.3 K/uL 1.5 - 7.5 Not Available [facility] [address] [place], [place] [address], [place], [address], 09/25/2024 14:56:04 09/26/19 25 09/25/2024 CBC W/ AUTOD IFF, COMPL ETE BLOOD COUNT lymphocyte, absolute 1.8 K/uL 0.8 - 4.0 Not Available [facility] [address] [place], [place] [address], [place], [address], 09/25/2024 14:56:04 09/26/19 25 09/25/2024 CBC W/ AUTOD IFF, COMPL ETE BLOOD COUNT monocyte, absolute 0.7 K/uL 0.1 - 1.0 Not Available [facility] [address] [place], [place] [address], [place], [address], 09/25/2024 14:56:04 09/26/19 25 09/25/2024 CBC W/ AUTOD IFF, COMPL ETE BLOOD COUNT eosinophil, absolute 0.7 K/uL 0.1 - 1.0 Not Available [facility] [address] [place], [place] [address], [place], [address], 09/25/2024 14:56:04 09/26/19 25 09/25/2024 CBC W/ AUTOD IFF, COMPL ETE BLOOD COUNT basophil, absolute 0.1 K/uL 0.0 - 0.2 Not Available [facility] [address], [place], [address], 09/25/2024 14:56:04 09/26/19 25 09/25/2024 PSA SCREE N PSA, total 12.40 NG/mL 0.00 - 6.50 high This test was perfo rmed using the Munir daljit e elect munir milum inesc ence immun oassa y metho d. Value s obtai antionette from diffe rent assay metho ds canno t be used inter lyles eably . PSA level s, regar dless of value , shoul d not be inter prete d as absol arnol evide nce of the prese nce or absen ce of disea se. Updat ed range s in accor dance with ACS stand ards: AGE: Refer ence Range : < 50 yr 0.00- 2.50 ng/mL 50-59 yr 0.00- 3.50 ng/mL 60-69 yr 0.00- 4.50 ng/mL > 70 yr 0.00- 6.50 ng/mL Age speci fic anne l value s from the liter ature for PSA are provi ded as a guide only. No one decis ion level is appro priat e when utili zing PSA in scree louise situa tion, age, famil y histo ry, previ ous value s, and other facto rs shoul d be used in decis ions invol ving PSA value s. Not Available [facility] [address], [place], [address], 09/25/2024 15:03:01 09/26/19 25 09/25/2024 CMP, COMPR EHENS TAMERA METAB OLIC PANEL glucose 137 mg/dL 70 - 100 high Not Available [facility] [address], [place], [address], 09/25/2024 15:05:53 09/26/19 25 09/25/2024 CMP, COMPR EHENS TAMERA METAB OLIC PANEL BUN 17 mg/dL 7 - 25 Not Available [facility] [address], [place], [address], 09/25/2024 15:05:53 09/26/19 25 09/25/2024 CMP, COMPR EHENS TAMERA METAB OLIC PANEL creatinine 1.0 mg/dL 0.6 - 1.3 Not Available [facility] [address], [place], [address], 09/25/2024 15:05:53 09/26/19 25 09/25/2024 CMP, COMPR EHENS TAMERA METAB OLIC PANEL BUN/creatini ne ratio 18 calc 10 - 25 Not Available [facility] [address], [place], [address], 09/25/2024 15:05:53 09/26/19 25 09/25/2024 CMP, COMPR EHENS TAMERA METAB OLIC PANEL GFR 79 mL/mi n/1.7 3m^2 >60 GFR < 60 mL/mi n for 3 or more month s may be indic ative of Kidne y Disea se. The GFR is based on the CKD-E PI 2020 equat ion. Not Available [facility] [address], [place], [address], 09/25/2024 15:05:53 09/26/19 25 09/25/2024 CMP, COMPR EHENS TAMERA METAB OLIC PANEL sodium 142 mmol/ L 135 - 145 Not Available [facility] [address], [place], [address], 09/25/2024 15:05:53 09/26/19 25 09/25/2024 CMP, COMPR EHENS TAMERA METAB OLIC PANEL potassium 5.4 mmol/ L 3.5 - 5.5 Not Available [facility] [address], [place], [address], 09/25/2024 15:05:53 09/26/19 25 09/25/2024 CMP, COMPR EHENS TAMERA METAB OLIC PANEL chloride 105 mmol/ L 100 - 115 Not Available [facility] [address] [place], [place] [address], [place], [address], 09/25/2024 15:05:53 09/26/19 25 09/25/2024 CMP, COMPR EHENS TAMERA METAB OLIC PANEL CO2 28 mmol/ L 21 - 33 Not Available [facility] [facility] [address], [place], [address], 09/25/2024 15:05:53 09/26/19 25 09/25/2024 CMP, COMPR EHENS TAMERA METAB OLIC PANEL calcium 9.0 mg/dL 8.8 - 10.6 Not Available [facility] [address] [place], [place] [address], [place], [address], 09/25/2024 15:05:53 09/26/19 25 09/25/2024 CMP, COMPR EHENS TAMERA METAB OLIC PANEL total protein 6.6 g/dL 6.2 - 8.6 Not Available [facility] [address] [place], [place] [address]y [address] [place], [address], 09/25/2024 15:05:53 09/26/19 25 09/25/2024 CMP, COMPR EHENS TAMREA METAB OLIC PANEL globulin 2.9 g/dL 1.3 - 4.0 Not Available [facility] [address] [place], [place] [address], [place], [address], 09/25/2024 15:05:53 09/26/19 25 09/25/2024 CMP, COMPR EHENS TAMERA METAB OLIC PANEL albumin 3.7 g/dL 3.5 - 5.7 Not Available [facility] [address], [place], [address], 09/25/2024 15:05:53 09/26/19 25 09/25/2024 CMP, COMPR EHENS TAMERA METAB OLIC PANEL A/G ratio 1.3 calc 1.0 - 2.8 Not Available [facility] [address], [place], [address], 09/25/2024 15:05:53 09/26/19 25 09/25/2024 CMP, COMPR EHENS TAMERA METAB OLIC PANEL AST (SGOT) 26 U/L 13 - 39 Not Available [facility] [address], [place], [address], 09/25/2024 15:05:53 09/26/19 25 09/25/2024 CMP, COMPR EHENS TAMERA METAB OLIC PANEL ALT (SGPT) 19 U/L 7 - 52 Not Available [facility] [address], [place], [address], 09/25/2024 15:05:53 09/26/19 25 09/25/2024 CMP, COMPR EHENS TAMERA METAB OLIC PANEL alkaline phosphatase 140 U/L 20 - 128 high Not Available [facility] [address] [place] [address] [place], [address], 09/25/2024 15:05:53 09/26/19 25 09/25/2024 CMP, COMPR EHENS TAMERA METAB OLIC PANEL total bilirubin 0.5 mg/dL 0.3 - 1.0 Not Available [facility] [address] [place] [address] [address], [place], [address], 09/25/2024 15:05:53 09/26/19 25 09/25/2024 LIPID PANEL W/ CALCU LATED LDL HDL cholestrol 51 mg/dL >=40 Not Available [facility] [address] [facility] [address], [place], [address], 09/25/2024 15:05:57 09/26/19 25 09/25/2024 LIPID PANEL W/ CALCU LATED LDL cholesterol 117 mg/dL <200 Expec jose ramon resul ts for Adult s: Total Kendal stero l: Risk class ifica tion < 200 mg/dL Golden able 200-2 39 mg/dL Borde rline high >240 mg/dL High Not Available [facility] [address] [facility] [address], [place], [address], 09/25/2024 15:05:57 09/26/19 25 09/25/2024 LIPID PANEL W/ CALCU LATED LDL triglyceride 71 mg/dL 30 - 150 Not Available [facility] [address] [facility] [address] [place], [address], 09/25/2024 15:05:57 09/26/19 25 09/25/2024 LIPID PANEL W/ CALCU LATED LDL non-HDL cholesterol 66 mg/dL <130 Golden able < 130 mg/dL Not Available [facility] [address] [facility] [address], [place], [address], 09/25/2024 15:05:57 09/26/19 25 09/25/2024 LIPID PANEL W/ CALCU LATED LDL chol/HDL risk ratio 2 calc < 5.0 Optim al Not Available [facility] [address] [facility] [address] [place], [address], 09/25/2024 15:05:57 09/26/19 25 09/25/2024 LIPID PANEL W/ CALCU LATED LDL LDL calculated 52 mg/dL 0 - 99 Not Available [facility] [address] [facility] [address], [place], [address], 09/25/2024 15:05:57 09/26/19 25 09/25/2024 URINA LYSIS , W/ REFLE X TO MICRO SCOPI C (NO CULTU RE) color YELLOW yellow Not Available [facility] [address] [place] [address] [address], [place], [address], 09/25/2024 15:10:09 09/26/19 25 09/25/2024 URINA LYSIS , W/ REFLE X TO MICRO SCOPI C (NO CULTU RE) appearance CLEAR clear Not Available [facility] [address] [place] [address] [address], [place], [address], 09/25/2024 15:10:09 09/26/19 25 09/25/2024 URINA LYSIS , W/ REFLE X TO MICRO SCOPI C (NO CULTU RE) glucose, urine 4+ mg/dL negati ve abnormal Not Available [facility] [address] [place] [address] [address] [place], [address], 09/25/2024 15:10:09 09/26/19 25 09/25/2024 URINA LYSIS , W/ REFLE X TO MICRO SCOPI C (NO CULTU RE) specific gravity 1.019 1.005- 1.030 Not Available [facility] [address] [place] [address] [address] [facility], [place], [address], 09/25/2024 15:10:09 09/26/19 25 09/25/2024 URINA LYSIS , W/ REFLE X TO MICRO SCOPI C (NO CULTU RE) pH 5.0 5.0-8. 0 Not Available [facility] [address] [place] [address] [address] [place], [address], 09/25/2024 15:10:09 09/26/19 25 09/25/2024 URINA LYSIS , W/ REFLE X TO MICRO SCOPI C (NO CULTU RE) bilirubin NEGATI VE mg/dL negati ve Not Available [facility] [address] [place] [address] [address], [place], [address], 09/25/2024 15:10:09 09/26/19 25 09/25/2024 URINA LYSIS , W/ REFLE X TO MICRO SCOPI C (NO CULTU RE) ketone NEGATI VE mg/dL negati ve Not Available [facility] [address] [place], [place] [address]y [address], [place], [address], 09/25/2024 15:10:09/26/19 25 09/25/2024 URINA LYSIS , W/ REFLE X TO MICRO SCOPI C (NO CULTU RE) urobilinogen NORMAL E.U./ dL normal Not Available [facility] [address] [place], [place] [address]y [address], [place], [address], 09/25/2024 15:10:09/26/19 25 09/25/2024 URINA LYSIS , W/ REFLE X TO MICRO SCOPI C (NO CULTU RE) protein NEGATI VE mg/dL negati ve Not Available [facility] [address] [place], [place] [address]y [address], [place], [address], 09/25/2024 15:10:09/26/19 25 09/25/2024 URINA LYSIS , W/ REFLE X TO MICRO SCOPI C (NO CULTU RE) nitrite NEGATI VE negati ve Not Available [facility] [address] [place], [place] [address]y [address], [place], [address], 09/25/2024 15:10:09/26/19 25 09/25/2024 URINA LYSIS , W/ REFLE X TO MICRO SCOPI C (NO CULTU RE) blood, urine NEGATI VE mg/dL negati ve Not Available [facility] [address] [place], [place] [address]y [address], [place], [address], 09/25/2024 15:10:09 09/26/19 25 09/25/2024 URINA LYSIS , W/ REFLE X TO MICRO SCOPI C (NO CULTU RE) leukocytes NEGATI VE bishop/u L negati ve A micro scopi c will refle x for: > or = trace blood , > or = 25 leuko cytes , + Nitri femi or > or = 1+ prote in. Not Available [facility] [address], [place], [address], 09/25/2024 15:10:09 09/26/1909/25/2024 VENIP UNCTU RE results Compl ete Not Available [facility] [address], [place], [address], 09/25/2024 10:03:03 09/27/19 25 09/26/2024 SURGI JEZ PATHO LOGY REPOR T pdf ACF Not Available [facility] [address], [place], [address], 09/30/2024 11:43:31 Result Notes None recorded. Problems Name Problem SNOMED Code Status Onset Date Resolution Date Notes Provider Name and Address Organization Details Recorded Time Essential hypertension 49505063 Active 2024 SHAINA LUBIN APRN [address], [place], [address], [facility], [facility] 11:00:55 Hyperlipidemia 32899004 Active 2024 SHAINA LUBIN APRN [address], [place], [address], [facility], [facility] 11:01:02 Diabetes mellitus 93691533 Active 2024 SHAINA LUBIN APRN [address], [place], [address], [facility], [facility] 11:01:08 Problem Notes None recorded. Procedures Surgical History Date Name Laterality Status Provider Name and Address Organization Details Recorded Time 10/03/19 25 G2211 completed WILLIE PAULINO [address], [place], [address], [facility], [facility] 10/02/2024 17:42:11 10/03/19 25 CGM Review completed WILLIE PAULINO [address], [place], [address], [facility], [facility] 10/02/2024 17:42:35 09/27/19 25 colonoscopy completed WILLIE PAULINO [address], [place], [address], [facility], [facility] 09/26/2024 10:22:47 08/22/19 25 G2211 completed WILLIE PAULINO [address], [place], [address], [facility], [facility] 08/18/2024 11:44:13 07/27/19 25 Fit-DNA / Cologuard completed [address], [place], [address], [facility], [facility] 07/26/2024 13:37:55 06/14/19 25 Quality Advanced Care Planning completed [facility], [facility] 06/14/2024 08:04:36 06/14/19 25 Quality Incontinence Screening completed [facility], [facility] 06/14/2024 08:04:36 06/14/19 [address], [place], [address], [facility], [facility] 06/14/2024 11:29:46 06/14/19 25 Medicare AWV Subsequent completed [facility], [facility] 06/14/2024 08:04:36 05/29/19 [address], [place], [address], [facility], [facility] 05/29/2024 13:19:59 04/03/20 24 diabetic retinal eye exam completed KRYSTLE MURRAY, RISK COMPLIANCE MANAGER [address] [facility] [address], [place], [address], [facility], [facility] 05/30/2024 13:10:34 Coronary Artery Bypass(CABG) completed [facility], [facility] 05/29/2024 09:33:55 Imaging Results None recorded. Procedure Notes None recorded. Medical Equipment None Reported. Allergies No known drug allergies Medications Name Sig Start Date Stop Date Status Note LastModified by Organization Details LastModified Time latanoprost 0.005 % eye drops PLACE 1 DROP INTO EACH EYE NIGHTLY AT BEDTIME. active Not Available Not Available No t Available atorvastati n 40 mg tablet TAKE 1 TABLET BY MOUTH EVERY DAY active Not Available Not Available No t Available benzonatate 200 mg capsule TAKE 1 CAPSULE BY MOUTH THREE TIMES A DAY 05/29 completed Not Available Not Available Not Available atenolol 25 mg tablet TAKE 1 TABLET BY MOUTH once A DAY active Not Available Not Available No t Available fexofenadin e 180 mg tablet TAKE 1 TABLET BY MOUTH EVERY DAY SWALLOW WHOLE WITH WATER DO NOT TAKE WITH FRUIT JUICES 05/29 completed Not Available Not Available Not Available nitroglycer in 0.4 mg sublingual tablet DISSOLVE 1 TABLET UNDER TONGUE EVERY 5 MIN FOR UP TO 3 DOSES NEEDED FOR CHEST PAIN.CALL 911 05/29 completed Not Available Not Available Not Available dorzolamide 22.3 mg-timolol 6.8 mg/mL eye drops INSTILL 1 DROP INTO BOTH EYES TWICE A DAY active Not Available Not Available No t Available azelastine 137 mcg (0.1 %) nasal spray USE 2 SPRAYS INTO NOSTRILS TWICE DAILY 05/29 completed Not Available Not Available Not Available Novolog FlexPen U-100 Insulin aspart 100 unit/mL (3 mL) subcutaneou s INJECT UP TO 30 UNITS EVERY DAY PER SLIDING SCALE active Not Available Not Available No t Available BD Ultra-Fine Short Pen Needle 31 gauge x 5/16 USE UP TO 5 TIMES A DAY active Not Available Not Available No t Available sodium,pota ssium,mag sulfates 17.5 gram-3.13 gram-1.6 gram oral soln active Not Available Not Available Not Available Farxiga 5 mg tablet TAKE 1 TABLET BY MOUTH EVERY DAY 05/29 completed Not Available Not Available Not Available Jardiance 10 mg tablet TAKE 1 TABLET (10 MG TOTAL) BY MOUTH EVERY MORNING. 06/14 completed Not Available Not Available Not Available Jardiance 25 mg tablet Take 1 tablet every day by oral route for 30 days. 2024 active Not Available Not Available Not Avai lable Tresiba FlexTouch U-200 insulin 200 unit/mL (3 mL) subcutaneou s pen INJECT UNDER THE SKIN UP TO 32 UNITS DAILY 05/29 completed Not Available Not Available Not Available Basaglar KwikPen U-100 Insulin 100 unit/mL (3 mL) subcutaneou s INJECT 40 UNITS SUBCUTANE OUSLY DAILY active Not Available Not Available No t Available FreeStE[employer] [place] [address] [place] DIRECTED FOR CONTINUOU S GLUCOSE MONITORIN G 05/29 completed Not Available Not Available Not Available Sutab 1.479-0.188 -0.225 gram tablet Take 24 tablets by oral route. 10/02 completed Not Available Not Available Not Available Ozempic 0.25 mg or 0.5 mg (2 mg/3 mL) subcutaneou s pen injector START WITH 0.25 MG WEEKLY FOR 4 WEEKS, THEN INCREASE TO 0.5 MG WEEKLY 05/29 completed Not Available Not Available Not Available Vitals Date Recorded Body height Respiratory rate Body mass index (BMI) Body weight Body temperature Heart rate Oxygen saturation Oxygen saturation in Arterial blood by Pulse oximetry Systolic And Diastolic Provider Name and Address Organization Details Last Updated DateTime 175.26 cm 16 /min 25.5 kg/m2 19954.4 8 g 98.3 [degF] 66 /min 97 % 97 % 118/80 mm[Hg] [facility], [facility] 10:01:17 Date Recorded Body height Respiratory rate Provider N raheem and Address Organization Details Last Updated DateTime 08/01/2024 175.26 cm 16 /min [facility], [facility] 08/01/2024 09:38:03 Date Recorded Body height Body mass index (BMI) Body weight Body temperature Heart rate Respiratory rate Oxygen saturation Oxygen saturation in Arterial blood by Pulse oximetry Systolic And Diastolic Provider Name and Address Organization Details Last Updated DateTime 175.26 cm 25.3 kg/m2 40057.4 5 g 98.1 [degF] 56 /min 16 /min 98 % 98 % 124/78 mm[Hg] [facility], [facility] 10:04:28 Date Recorded Body height Body mass index (BMI) Body weight Heart rate Systolic And Diastolic Provider Name and Address Organization Details Last Updated DateTime 08/22/2024 175.26 cm 25.4 kg/m2 72446.89 g 62 /min 148/80 mm[Hg] [facility] 08/22/2024 10:49:59 Date Recorded Body height Body mass index (BMI) Body weight Body temperature Heart rate Respiratory rate Oxygen saturation Oxygen saturation in Arterial blood by Pulse oximetry Systolic And Diastolic Provider Name and Address Organization Details Last Updated DateTime 175.26 cm 25.3 kg/m2 52396.4 5 g 97.8 [degF] 86 /min 16 /min 97 % 97 % 116/70 mm[Hg] [facility], [facility] 10:06:05 Date Recorded Body height Body mass index (BMI) Body weight Heart rate Systolic And Diastolic Provider Name and Address Organization Details Last Updated DateTime 10/03/2024 175.26 cm 25.4 kg/m2 80258.89 g 65 /min 123/76 mm[Hg] [facility] 10/03/2024 09:29:55 Social History Question Answer Notes LastModified by Organizat ion Details LastModified Time Tobacco Smoking Status Never Smoker [facility], [facility] 05/29/2024 09:33:50 Do You Have An Advance Directive? Yes Information not available 06/14/2024 Is Blood Transfusion Acceptable In An Emergency? Yes [email or web address] Information not available 05/29/2024 What Type Of Diet Are You Following? REGULAR [email or web address] Information not available 05/29/2024 What Is The Highest Grade Or Level Of School You Have Completed Or The Highest Degree You Have Received? [id number] [email or web address] Information not available 05/29/2024 What Is Your Relationship Status? [email or web address] Information not available 05/29/2024 Are You Sexually Active? No [email or web address] Information not available 05/29/2024 Sex: Male Functional Status Question Answer Note LastModified by Organizat ion Details LastModified Time What is your level of alcohol consumption? Moderate [email or web address] Information not available 05/29/2024 Do you or have you ever used smokeless tobacco? Never used smokeless tobacco [email or web address] Information not available 05/29/2024 What is your exercise level? Moderate [email or web address] Information not available 05/29/2024 Mental Status None recorded. Family History Relationship Description Onset Age of this Age Resolved Age Notes LastModified by Organization Details LastModified Time Father Parkinson's disease [email or web address] Not available 12/2024 09:33:24 Father Heart disease Not available 12/2024 09:33:24 Medical History Condition Response Diabetes Y GERD/Ulcer Y Heart disease / Heart Attack Y Past Encounters Encounter ID Performer Location Encounter Start Date Encounter Closed Date Diagnosis/Indication Diagnosis SNOMED-CT Code Diagnosis ICD10 Code Diagnosis Note [id number] KRYSTLE MURRAY APRN [facility] [address] [facility] [address] [place] [address] 05/29/2024 09:10:48 05/29/2024 10:06:59 Patient new to provider [id number] 57683 Z76.89 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 Needs monitoring . Prescripti on drug management : Continue medication s as in med list. Follow up as scheduled. Plan of care: Continue therapeuti c lifestyle changes and/or medication s to maintain a healthy blood sugar with goal HbA1c of 6.5 without hypoglycem ia episodes. Periodic visits and recheck of labs with appropriat e therapeuti c changes will be done to help with this goal. Check A1C every 3 months. 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 Needs follow up on weight control as scheduled. Chronic, Stable Non-thromb ocytopenic purpura 562480263 D69.2 due to ASA. 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 Needs monitoring . Prescripti on drug management : [] Understand s increased statistica l increased risk of stroke, heart attack and . Improve therapeuti c lifestyle changes and/or medication s to maintain an LDL below 100. Periodic visits and labs and appropriat e therapeuti c changes will occur to help meet this goal to minimize risk of atheroscle rotic disease. Recheck labs as ordered. Long-term current use of insulin 887762808 Z79.4 Chronic. Stable. Basal and bolus Coronary atherosclerosis 275448234 I25.10 Chronic problem, stable - at or near LDL goal. Needs monitoring . Prescripti on drug management : [] Understand s increased statistica l increased risk of stroke, heart attack and . Improve therapeuti c lifestyle changes and/or medication s to maintain an LDL below 100. Periodic visits and labs and appropriat e therapeuti c changes will occur to help meet this goal to minimize risk of atheroscle rotic disease. Recheck labs as ordered. 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 Stable. Continue POC. Followed by ophthalmol ogy. Electrocar diogram abnormal 087089961 R94.[address] with CABG X 6 Primary op en angle glaucoma 19103365 H40.1120 Chronic. Stable. Continue POC and eye drops. Followed by ophthalmol ogy. 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 Stable. Continue POC and eye drops. Followed by ophthalmol ghanshyam. [id number] KRYSTLE WILLIE MURRAY [facility] [address] [place] [address] 06/14/2024 09:55:46 06/14/2024 10:47:25 Adult health examination 846595876 Z00.00 Annual Wellness Visit; we discussed all laboratory data in detail. Any derivative s of labs outside of the normal range were discussed and appropriat e clinical recommenda tions were made. We discussed health maintenanc e items such as eye exams, foot exam, skin exams, colon cancer screening, vaccinatio ns, mammograms and bone density if appropriat e. All questions were discussed in detail and any appropriat e referrals were given. 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 - Increase Jardiance from 10 mg to 25 mg daily to improve glycemic control.- Prescripti on for Jardiance 25 mg printed and provided to the patient with dipak garza to fill at their local pharmacy in [facility].-Sampl es given- Ordered follow-up labs for early September, including A1c, comprehens tamera metabolic panel, lipid panel, CBC, and urinalysis .- Follow-up appointmen t scheduled for one week after labs. Chronic problem. Needs monitoring . Prescripti on drug management : Continue medication s as in med list. Follow up as scheduled. Plan of care: Continue therapeuti c lifestyle changes and/or medication s to maintain a healthy blood sugar with goal HbA1c of 6.5 without hypoglycem ia episodes. Periodic visits and recheck of labs with appropriat e therapeuti c changes will be done to help with this goal. Check A1C every 3 months. 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 Needs monitoring . Prescripti on drug management : [atorvasta tin 40 mg daily, ] Understand s increased statistica l increased risk of stroke, heart attack and . Improve therapeuti c lifestyle changes and/or medication s to maintain an LDL below 100. Periodic visits and labs and appropriat e therapeuti c changes will occur to help meet this goal to minimize risk of atheroscle rotic disease. Recheck labs as ordered. Coronary atherosclerosis 495479593 I25.10 Chronic problem, stable - at or near LDL goal. Needs monitoring . Prescripti on drug management : [] Understand s increased statistica l increased risk of stroke, heart attack and . Improve therapeuti c lifestyle changes and/or medication s to maintain an LDL below 100. Periodic visits and labs and appropriat e therapeuti c changes will occur to help meet this goal to minimize risk of atheroscle rotic disease. Recheck labs as ordered. Non-thromb ocytopenic purpura 408593819 D69.2 due to ASA. Will monitor Long-term current use of insulin 307628867 Z79.4 - Continue current insulin regimen.- Monitor blood glucose levels regularly. - Educated patient on the importance of maintainin g consistent blood glucose monitoring . Chronic. Stable. 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 Stable. Continue POC. Followed by ophthalmol ogy. 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 Stable. Continue POC and eye drops. Followed by ophthalmol ogy. Primary op en angle glaucoma 24475419 H40.1120 Chronic. Stable. Continue POC and eye drops. Followed by ophthalmol ogy. Disorder d ue to type 2 diabetes mellitus 805124676 E11.69 HLD, macular edema Electrocar diogram abnormal 379027689 R94.[address] with CABG X 6 Screening for cancer 158 14826 Z12.5 Screening for malignant neoplasm of colon 649186131 Z12.11 Endocrine/ metabolic screening 940173068 E78.2 Hyperlipid emia screening 194018980 E78.2 Anemia screening 6222502 07 Z13.0 Screening for malignant neoplasm of urinary system 886498158 Z12.6 Body mass index 25-29 - overweight 525776229 Z68.25 Weight issues discussed and informatio n on weight loss given. Needs follow up on weight control as scheduled. Chronic, Stable Immunization advised 310 895847 Z71.9 Advised to receive RVZ. Will obtain at pharmacy. Prostate s pecific antigen above reference range 321729657 R97.20 - PSA level is 10.6 ng/mL, elevated above the normal range of 6 ng/mL for age.- Discussed options: recheck PSA in a few months, prostate MRI, or referral to urology.- Patient opted to recheck PSA in early September.- Ordered PSA recheck for early September. At high risk for fall 45 75037815 96850061 Z91.81 - Patient has a history of falls within the past year.- Educated patient on fall prevention strategies and the importance of balance exercises. - Continue balance exercises as discussed. History of cardiac surgery 917942778 Z98.890 - Patient advised to continue daily walking to maintain leg strength and overall cardiovasc ular health.- No new issues reported related to previous surgery. Presbycusis 56499702 H91 .10 - Patient uses hearing aids, which are functionin g well.- Discussed the option of wireless headphones for TV to improve hearing experience .- No further action required at this time. Depression screening 171 597258 Z13.31 Annual PHQ9 completed= 3, negative [id number] WILLIE PAULINO [facility] [address] [facility] [address] [place] [address] 08/21/2024 09:45:31 08/21/2024 10:30:36 At high risk for fall 5361251540 02577236 Z91.81 - No specific discussion or treatment plan provided during this visit.- Patient has a history of falls within the past year.- Educated patient on fall prevention strategies and the importance of balance exercises. - Continue balance exercises as discussed. 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 Chronic problem. Needs monitoring . Prescripti on drug management : Continue medication s as in med list. Follow up as scheduled. Plan of care: Continue therapeuti c lifestyle changes and/or medication s to maintain a healthy blood sugar with goal HbA1c of 6.5 without hypoglycem ia episodes. Periodic visits and recheck of labs with appropriat e therapeuti c changes will be done to help with this goal. Check A1C every 3 months. 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 Needs monitoring . Prescripti on drug management : [atorvasta tin 40 mg daily, ] Understand s increased statistica l increased risk of stroke, heart attack and . Improve therapeuti c lifestyle changes and/or medication s to maintain an LDL below 100. Periodic visits and labs and appropriat e therapeuti c changes will occur to help meet this goal to minimize risk of atheroscle rotic disease. Recheck labs as ordered. History of cardiac surgery 099405639 Z98.890 - Patient had open heart surgery in [place] 4 years ago and is currently doing well. - No specific treatment plan or follow-up required at this time.- Patient advised to continue daily walking to maintain leg strength and overall cardiovasc ular health.- No new issues reported related to previous surgery. Presbycusis 78887650 H91 .10 - Patient uses hearing aids, which are functionin g well.- Discussed the option of wireless headphones for TV to improve hearing experience .- No further action required at this time. Coronary atherosclerosis 352180616 I25.10 Chronic problem, stable - at or near LDL goal. Needs monitoring . Prescripti on drug management : [] Understand s increased statistica l increased risk of stroke, heart attack and . Improve therapeuti c lifestyle changes and/or medication s to maintain an LDL below 100. Periodic visits and labs and appropriat e therapeuti c changes will occur to help meet this goal to minimize risk of atheroscle rotic disease. Recheck labs as ordered. Non-thromb ocytopenic purpura 659014444 D69.2 due to ASA. Will monitor Long-term current use of insulin 734948848 Z79.4 - Continue current insulin regimen.- Monitor blood glucose levels regularly. - Educated patient on the importance of maintainin g consistent blood glucose monitoring . Chronic. Stable. 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 Stable. Continue POC. Followed by ophthalmol ogy. 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 Stable. Continue POC and eye drops. Followed by ophthalmol ghanshyam. Primary op en angle glaucoma 01996020 H40.1120 - No specific discussion or treatment plan provided during this visit.System Archive Analyst clara. Stable. Continue POC and eye drops. Followed by ophthalmol ghanshyam. Disorder d ue to type 2 diabetes mellitus 047930210 E11.69 - No specific discussion or treatment plan provided during this visit.HLD, macular edema Electrocar diogram abnormal 783878481 R94.31 - No specific discussion or treatment plan provided during this visit.Past CT with CABG X 6 Screening for malignant neoplasm of colon 348706949 Z12.11 - Cologuard test returned positive, indicating possible presence of colon cancer. - Discussed the need for a colonoscop y to confirm diagnosis. - Patient agreed to proceed with colonoscop y. - Referral made to [facility] sherry damonogist in [place] for colonoscop y. - Patient educated on the slow-growi ng nature of colon cancer and the importance of screening. Body mass index 25-29 - overweight 920152600 Z68.25 - No specific discussion or treatment plan provided during this visit.Weig ht issues discussed and informatio n on weight loss given. Needs follow up on weight control as scheduled. Chronic, Stable Immunization advised 310 326878 Z71.9 - No specific discussion or treatment plan provided during this visit.Advi sed to receive RVZ. Will obtain at pharmacy. Prostate s pecific antigen above reference range 739455598 R97.20 - No specific discussion or treatment plan provided during this visit.- PSA level is 10.6 ng/mL, elevated above the normal range of 6 ng/mL for age.- Discussed options: recheck PSA in a few months, prostate MRI, or referral to urology.- Patient opted to recheck PSA in early September.- Ordered PSA recheck for early September. Colorectal cancer detected by DNA-based stool screening 369855871 R19.5 - Cologuard test returned positive, indicating possible presence of colon cancer. - Discussed the need for a colonoscop y to confirm diagnosis. - Patient agreed to proceed with colonoscop y. - Referral made to [facility] sherry damonogist in [place] for colonoscop y. - Patient educated on the slow-growi ng nature of colon cancer and the importance of screening. [id number] WILLIE ZHANG [facility] [address] [facility] [address] [place] [address] 08/22/2024 10:05:15 08/22/2024 11:02:35 Colorectal cancer detected by DNA-based stool screening 930982917 R19.5 The patient presents with a positive Cologuard. Reports that his last colonoscop y was performed 15 years ago and normal. No records available. Reports history of colon polyps. Denies any lower GI symptoms. He reports intermitte nt dysphagia in his distal esophagus with foods, as well as a chronic cough. Taking Prilosec, which seems to help the cough. Recommend colonoscop y at this time. Risks including perforatio n and infection were discussed with the patient. Dysphagia 41076457 R13.1 0 Chronic, uncontroll ed. The patient presents with a positive Cologuard. Reports that his last colonoscop y was performed 15 years ago and normal. No records available. Reports history of colon polyps. Denies any lower GI symptoms. He reports intermitte nt dysphagia in his distal esophagus with foods, as well as a chronic cough. Taking Prilosec, which seems to help the cough. Recommend EGD at this time to determine any changes in the esophagus or stomach. Chronic cough 10603718 R 05.3 Chronic, uncontroll ed. The patient presents with a positive Cologuard. Reports that his last colonoscop y was performed 15 years ago and normal. No records available. Reports history of colon polyps. Denies any lower GI symptoms. He reports intermitte nt dysphagia in his distal esophagus with foods, as well as a chronic cough. Taking Prilosec, which seems to help the cough. Could be related to inflammati on in the esophagus. EGD will yield more informatio n. [id number] KRYSTLE MURRAY APRN [facility] [address] [place] [address] 10/02/2024 09:52:35 10/02/2024 10:54:39 At high risk for fall [id number] Z91.81 - Patient has a history of falls within the past year.- Educated patient on fall prevention strategies and the importance of balance exercises. - Continue balance exercises as discussed. 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 If your blood sugar levels are not coming down to the normal range, you can adjust your sliding scale by increasing the dose by 2 units.-Con nected patient to [employer] [facility]mel for continuous glucose monitoring .-Sliding scale provided Chronic problem. Needs monitoring . Prescripti on drug management : Continue medication s as in med list. Follow up as scheduled. Plan of care: Continue therapeuti c lifestyle changes and/or medication s to maintain a healthy blood sugar with goal HbA1c of 6.5 without hypoglycem ia episodes. Periodic visits and recheck of labs with appropriat e therapeuti c changes will be done to help with this goal. Check A1C every 3 months. 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 Chronic problem, stable - at or near LDL goal. Needs monitoring . Prescripti on drug management : [atorvasta tin 40 mg daily, ] Understand s increased statistica l increased risk of stroke, heart attack and . Improve therapeuti c lifestyle changes and/or medication s to maintain an LDL below 100. Periodic visits and labs and appropriat e therapeuti c changes will occur to help meet this goal to minimize risk of atheroscle rotic disease. Recheck labs as ordered. History of cardiac surgery [id number] Z98.890 - Patient had open heart surgery in [place] 4 years ago and is currently doing well.- Patient advised to continue daily walking to maintain leg strength and [facility] No new issues reported related to previous surgery. Presbycusis [id number] H91 .10 - Patient uses hearing aids, which are functionin g well.- Discussed the option of wireless headphones for TV to improve hearing experience .- No further action required at this time. Coronary atherosclerosis [id number] I25.10 Chronic problem, stable - at or near LDL goal. Needs monitoring . Prescripti on drug management : [] Understand s increased statistica l increased risk of stroke, heart attack and . Improve therapeuti c lifestyle changes and/or medication s to maintain an LDL below 100. Periodic visits and labs and appropriat e therapeuti c changes will occur to help meet this goal to minimize risk of atheroscle rotic disease. Recheck labs as ordered. Non-thromb ocytopenic purpura [id number] D69.2 due to ASA. Will monitor Long-term current use of insulin [id number] Z79.4 - Patient on Basaglar insulin 40 units daily and Novolog 6 units with meals.- Educated patient on adjusting insulin dosage based on blood glucose readings.- Discussed potential switch to Tresiba for better glycemic control. Chronic. Stable. 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 Stable. Continue POC. Followed by ophthalmol ogy. 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 Stable. Continue POC and eye drops. Followed by ophthalmol ogy. Primary op en angle glaucoma [id number] H40.1120 Chronic. Stable. Continue POC and eye drops. Followed by ophthalmol ogy. Disorder d ue to type 2 diabetes mellitus [id number] E11.69 HLD, macular edema Electrocar diogram abnormal 771179011 R94.[address] with CABG X 6 Screening for malignant neoplasm of colon [id number] Z12.11 - Recent colonoscop y performed due to abnormal Cologuard test.- One large polyp removed, appeared benign.- Follow-up with Dr. Anderson scheduled for tomorrow. Body mass index 25-29 - overweight [id number] Z68.25 Weight issues discussed and informatio n on weight loss given. Needs follow up on weight control as scheduled. Chronic, Stable Immunization advised [id number] Z71.9 Advised to receive RVZ. Will obtain at pharmacy. Prostate s pecific antigen above reference range 627978231 R97.20 - PSA elevated to 12 from 10 in May.- Referral to urologist Dr. Edenilson Smith at [facility] for further evaluation .- Educated patient on potential need for prostate MRI and biopsy. - PSA level is 10.6 ng/mL, elevated above the normal range of 6 ng/mL for age.- Discussed options: recheck PSA in a few months, prostate MRI, or referral to urology.- Patient opted to recheck PSA in early September.- Ordered PSA recheck for early September. Colorectal cancer detected by DNA-based stool screening [id number] R19.5 - Recent colonoscop y performed due to abnormal Cologuard test.- One large polyp removed, appeared benign.- Follow-up with Dr. Zepeda scheduled for tomorrow.- Patient educated on the slow-growi ng nature of colon cancer and the importance of screening. Hiatal hernia 69135795 K 44.9 - Small hiatal hernia identified during recent colonoscop y.- No current symptoms reported.- Educated patient on lifestyle modificati ons including avoiding large meals, not lying down immediatel y after eating, and elevating the head of the bed. Gastric ul cer without hemorrhage AND without perforation 45166415 K25.9 - Gastric ulcer identified during recent colonoscop y. - No current symptoms reported. - Continue monitoring for any signs of gastrointe stinal bleeding or worsening symptoms. Serum maria luisa line phosphatase above reference range 087299099 R74.8 - Alkaline phosphatas e elevated at 140. - Additional liver function tests ordered to further evaluate. - Follow-up scheduled for March to review lab results. Essential hypertension 01128933 I10 Chronic condition, stable at blood pressure goal. Needs monitoring . Prescripti on drug management : Atenolol 25 mg once a day. Continue with therapeuti c lifestyle changes (TLC) and continue home bp monitoring . Plan of care will be to use TLC and/or medication s with periodic follow up visits to maintain a safe blood pressure. Aware of s/s of hypertensi ve crisis such as vision changes, vomiting, headache. Optimal: Less than 120/80 mmHgNormal : 120-129/80 -84 mmHgElevat ed: 130-139/80 -89 mmHg [id number] WILLIE ZHANG [facility] [address] [facility] [address] [place] [address] 10/03/2024 09:07:55 10/03/2024 09:36:11 Gastric ulcer without hemorrhage AND without perforation [id number] K25.9 Chronic, uncontroll ed. The patient presents following an EGD/Colono scopy. During the EGD, gastritis, a small hiatal hernia, and non-bleedi ng gastric ulcers were noted. His esophagus was empiricall y dilated and he notes an improvemen t in swallowing . A tubular adenoma was removed from the cecum and he no longer needs colonoscop ies unless diagnostic . Patient denies any abdominal pain, rectal bleeding, or altered bowel function. OTC PPI for 6 weeks then PRN. F/U as needed. Chronic gastritis [id number] [id number] K29.50 The patient presents following an EGD/Colono scopy. During the EGD, gastritis, a small hiatal hernia, and non-bleedi ng gastric ulcers were noted. His esophagus was empiricall y dilated and he notes an improvemen t in swallowing . A tubular adenoma was removed from the cecum and he no longer needs colonoscop ies unless diagnostic . Patient denies any abdominal pain, rectal bleeding, or altered bowel function. Adenomatou s polyp of colon [id number] D12.2 The patient presents following an EGD/Colono scopy. During the EGD, gastritis, a small hiatal hernia, and non-bleedi ng gastric ulcers were noted. His esophagus was empiricall y dilated and he notes an improvemen t in swallowing . A tubular adenoma was removed from the cecum and he no longer needs colonoscop ies unless diagnostic . Patient denies any abdominal pain, rectal bleeding, or altered bowel function. Reviewed all imaging/pa thology with the patient. All questions answered. F/U as needed. Health Concerns Section Related Observation LastModified by Organization Detai ls LastModified Time None Recorded Concern Status LastModified by Organization Details LastModified Time None Recorded Advance Directives Directive Y: Payers Insurance Date Sequence Insurance Name Policy Number Policy Calzada Covered Member ID Calzada Member ID Guarantor Name 09/30/2024 2 [place] [id number] Rudy Williamson [id number] Rudy Williamson 09/22/2024 1 [place] Rudy Williamson [id number] Rudy Williamson Notes Date Note Type Note Provider Name and Address Organization Details Recorded Time 06/14/2024 text/html The patient is a 78-year-old male with a history of type 2 diabetes mellitus, presenting for AWV. The patient reports a recent increase in A1c to 7.3, up from 7.1. He is currently on insulin and Jardiance 10 mg daily. He inquires about increasing the Jardiance dosage to 25 mg to help lower his A1c. He also reports a recent increase in fasting blood glucose levels, with a reading of 140 mg/dL today, which is higher than usual. He denies using a continuous glucose monitor (CGM) and checks his blood sugars manually. The patient has been experiencing a cough, which has improved with the use of Prilosec. He reports no pain and denies any concerns about his memory. He uses hearing aids, which he reports work pretty good most of the time, but he has difficulty hearing in loud environments and when there is background noise on the television. He sees an eye doctor in [place] every 6 weeks for eye injections, which he reports are not painful. He denies any issues with vision. ANNUAL WELLNESS VISIT QUESTIONNAIRE Has the patient had any change or additions to their Medical Care Team since the last visit? i.e. pharmacy, medical suppliers, doctorsYes Patient reported changes/additions to Medical Care TeamKrystle RODGERS What is the Patient's living arrangements?Live with Spouse What type of residence does the Patient live in?Single Family Home How many stories (floors) to the Patient's residence?Single Story (1 floor) Does the Patient have smoke / CO detectors in the home?Yes Does the Patient use any of the following Respirator Machines?Nebulizer - NoOxygen - NoCPAP/BiPAP - No Is the Patient able to afford his/her medications?Yes What type of transportation does the Patient use?I use my own car Has the Patient had a weight change in the past 6 months?No What type of diet the patient is currently following?Regular What best describes the Patient's level of Physical activity?Moderate Does the Patient use Tobacco Products?No Has the Patient seen a Dentist in the last 12 months?Yes Does the Patient always use a seat belt routinely?Yes Does the Patient use sunscreen routinely?Yes Does the Patient wear a helmet when riding a bicycle/motorcycle?D o Not Ride Is the Patient sexually active?No How would the patient rate their health compared to others your age?Better How would the patient rate their health today compared to last year?Same Does the Patient have Pain?No Is the patient using narcotics/opioids for pain?No Is the patient taking or using any other harmful substances?No Does the Patient or people around the Patient have concerns about the Patient's hearing?Yes Does the Patient or people around the Patient have concerns about the Patient's vision?No Does the Patient use any of the following for mobility assistance?Cane - NoCrutches - NoWalker - NoWheelchair/Scooter - No Does the Patient or the people around the Patient have concerns about his/her memory?No Does the Patient have an Advance Directive (Living Will)?Yes PHQ ScoreNo or Minimal depression, (3). Imported from [employer] on 06/14/2024 KRYSTLE MURRAY, WILLIE [address], [place], [address], [employer] 06/14/2024 12:11:29 08/21/2024 text/html The patient is a 79-year-old male, with a history of DM and recent positive Cologuard test, presenting for follow-up.. He inquires about the next steps and expresses interest in scheduling a colonoscopy. He mentions that he has been trying to schedule a colonoscopy in [place], but the earliest available appointment is in January. He inquires about the possibility of scheduling the procedure in [place], where he currently resides. The patient also discusses his current diabetes management. He is currently taking Jardiance, which was recently increased to 25 mg. He reports tolerating the increased dosage well and inquires about the reason for the dosage increase. He also mentions that his Dexcom reader recently stopped working and inquires about obtaining a new one. KRYSTLE MURRAY, WILLIE [address], [place], [address], [employer], [employer] 08/21/2024 13:02:08 08/22/2024 text/html The patient pres ents with a positive Cologuard. Reports that his last colonoscopy was performed 15 years ago and normal. No records available. Reports history of colon polyps. Denies any lower GI symptoms. He reports intermittent dysphagia in his distal esophagus with foods, as well as a chronic cough. Taking Prilosec, which seems to help the cough. SHAINA LUBIN, RISK COMPLIANCE MANAGER [address] [address], [place], [address], [facility] - [facility] Physician [facility], [facility] 08/22/2024 11:03:19 10/02/2024 text/html The patient is a 79-year-old male with a history of DM, presenting for follow-up on recent lab results. The patient recently underwent a colonoscopy following an abnormal Cologuard test. During the procedure, a large polyp was removed, which was reportedly benign in appearance. Additionally, a small hiatal hernia and a gastric ulcer were identified. The patient denies current stress. Recent lab results were reviewed. The patient's urinalysis showed glucosuria, which is expected due to his current medication, Jardiance. His lipid panel was within normal limits, with a total cholesterol of 117 mg/dL, triglycerides at 71 mg/dL, HDL at 51 mg/dL, and LDL at 52 mg/dL. The patient believes the labs were fasting. His glucose level was 137 mg/dL. Liver function tests were mostly within normal limits, except for an elevated alkaline phosphatase level of 140 U/L. The patient denies any history of liver disease. His PSA level has increased from 10 ng/mL in May to 12 ng/mL currently. CBC results were within normal limits, and his A1c has increased from 7.3% to 7.5%. The patient is currently managing his diabetes with Jardiance, Basaglar insulin (approximately 40 units), and Novolog insulin (approximately 6 units per meal). He monitors his blood glucose levels regularly, with fasting levels typically below 130 mg/dL. He reports occasional nocturnal hypoglycemia, with the lowest recorded level being 62 mg/dL, which he seldom notices. He recently switched to the Dexcom G7 continuous glucose monitor, which he finds more effective in alerting him to low blood glucose levels at night. He has not yet started on Tresiba, although it has been recommended by his diabetes care team at the [facility] in [place]. He plans to initiate this medication upon returning home. KRYSTLE MURRAY, RISK COMPLIANCE MANAGER [address], [place], [address], [facility] Physician [facility], [facility] 10/02/2024 17:58:28 10/03/2024 text/html The patient pres ents following an EGD/Colonoscopy. During the EGD, gastritis, a small hiatal hernia, and non-bleeding gastric ulcers were noted. His esophagus was empirically dilated and he notes an improvement in swallowing. A tubular adenoma was removed from the cecum and he no longer needs colonoscopies unless diagnostic. Patient denies any abdominal pain, rectal bleeding, or altered bowel function. SHAINA LUBIN, RISK COMPLIANCE MANAGER [address], [place], [address], [facility], [facility] 10/03/2024 09:39:36
--- OUTSIDE RECORDS SUMMARY | 2024-12-04 09:03 | XMS_ITS | Patient Health Record ---
Author Organization [facility] Address [address] [place] [address] Care Team Providers Care Alignment Specialist Name Role Phone Corona Hilton Jr [phone] Reason For Referral No Information Plan Of Treatment No Information
== END 2024-12-04 09:42 | disposition home or self-care (01) ==
LOC: HO.HMCHD 08:52
PROVIDERS: PCP Internal Medicine Endocrinology, Diabetes & Metabolism; Visit Provider Physician Assistant
DX: I25.10 Atherosclerotic heart disease of native coronary artery without angina pectoris (principal); I10 Essential (primary) hypertension; E78.5 Hyperlipidemia, unspecified; E11.9 Type 2 diabetes mellitus without complications; R97.20 Elevated prostate specific antigen [PSA]

== ENCOUNTER → 2024-12-04 08:51 | Outpatient (BNVA) | payer MEDICARE, SELFPAY | PROVIDERS: PCP Internal Medicine Endocrinology, Diabetes & Metabolism; Visit Provider Physician Assistant | DX: I25.10 Atherosclerotic heart disease of native coronary artery without angina pectoris (principal); I10 Essential (primary) hypertension; E78.5 Hyperlipidemia, unspecified; E11.9 Type 2 diabetes mellitus without complications; R97.20 Elevated prostate specific antigen [PSA]; Z79.4 Long term (current) use of insulin; Z79.82 Long term (current) use of aspirin; Z79.899 Other long term (current) drug therapy; Z95.1 Presence of aortocoronary bypass graft; Z13.30 Encounter for screening examination for mental health and behavioral disorders, unspecified | CPT/HCPCS: 96127; 99202 ==